=== PATIENT | female | born 1985 | race Caucasian/White ===

== ENCOUNTER 2017-11-26 20:30 | Outpatient (CLI) | payer BC | END 2017-11-26 20:31 | disposition home or self-care (01) | LOC: SLEEPLAB 20:30 | PROVIDERS: ATTEND Family Medicine | DX: G47.33 Obstructive sleep apnea (adult) (pediatric) (principal); R53.83 Other fatigue; K21.9 Gastro-esophageal reflux disease without esophagitis; I10 Essential (primary) hypertension | CPT/HCPCS: 95811 ==

== ENCOUNTER 2019-02-23 08:06 | Outpatient (CLI) | payer BC ==
[2019-02-23 08:32] LABS: Anion Gap 12 mmol/L (10-20); BUN (Urea Nitrogen) 19 mg/dL (8.9-20.6); Calc. Creatinine Clearance 0 mL/min (70-130); Calcium 9.5 mg/dL (7.8-10.44); Carbon Dioxide 28 mmol/L (22-29); Chloride 107 mmol/L (98-107); Estimated GFR-MDRD 59; Glucose 97 mg/dL (70-105); Potassium 3.8 mmol/L (3.5-5.1); Sodium 143 mmol/L (136-145); Uric Acid 7.7 mg/dL (3.5-7.2)
--- NOTE | 2019-02-23 08:44 | ULT ---
ULTRASOUND RETROPERITONEUM COMPLETE: (RENAL) DATE: 02/23/2019. HISTORY: A 33-year-old male with calculus of kidney, nephrolithiasis. FINDINGS: The right kidney measures 10 x 5.5 x 5.5 cm. The left kidney measures 11 x 6 x 5 cm. Both kidneys h ave normal cortical thickness and normal cortical echogenicity. There is no hydronephrosis. Cursory images of the urinary bladder demonstrate no gross abnormality. IMPRESSION: Normal jn [] POS: C
[2019-02-23 08:56] LABS: Bilirubin Negative (Negative); Blood, Urine Negative (Negative); Clarity Clear (Clear); Glucose, Urine (Dipstick) Negative (Negative); Leukocyte Negative (Negative); Nitrite Negative (Negative); Protein, Urine (Dipstick) Negative (Neg-Trace); Urobilinogen 0.2 mg/dL (Less than 2)
--- NOTE | 2019-02-23 08:57 | RAD ---
KUB: HISTORY: Left-sided kidney stone by history. FINDINGS: The bowel gas pattern appears nonobstructive. I see no definitive renal or ureteral calculi. IMPRESSION: Unremarkable KUB. POS: [facility]
[2019-02-23 09:00] LABS: Urine Culture Reflex No No
[2019-02-23 09:25] LABS: RBC/HPF 0-3 HPF (0-3); WBC/HPF 0-3 HPF (0-3)
[2019-02-23 09:27] LABS: Squamous Epithelial 0-3 HPF (0-3)
[2019-02-23 09:32] LABS: Bacteria/HPF None Seen HPF (None Seen)
== END 2019-02-23 08:07 | disposition home or self-care (01) ==
LOC: SCSULT 08:06
PROVIDERS: ATTEND Urology
DX: N20.0 Calculus of kidney (principal); N18.2 Chronic kidney disease, stage 2 (mild); R35.0 Frequency of micturition
CPT/HCPCS: 36415; 74018; 76770; 80048; 81001; 83970; 84550

== ENCOUNTER 2019-12-03 11:07 | Outpatient (CLI) | payer BC ==
--- NOTE | 2019-12-03 11:42 | ULT ---
ULTRASOUND RETROPERITONEUM COMPLETE: (RENAL) DATE: 12/03/2019 HISTORY: 34-year-old male with calculus of kidney nephrolithiasis ICD-10: N 20.0 FINDINGS: The right kidney measures 10.5 x 6 x 6 cm. The left kidney measures 10.5 x 6 x 5.5 cm. Both kidneys have normal parenchymal echogenicity. There is no hydronephrosis. No moderate sized or large renal cystic or solid renal lesion is identified. Prevoid urinary bladder volume 465 mL. Post void urinary bladder volume 35 mL. IMPRESSION: 1) distended urinary bladder followed by incomplete micturition. 2) no sonographic renal abnormality identified.
== END 2019-12-03 11:08 | disposition home or self-care (01) ==
LOC: SCSULT 11:07
PROVIDERS: ATTEND Urology
DX: N20.0 Calculus of kidney (principal); N32.89 Other specified disorders of bladder; R39.14 Feeling of incomplete bladder emptying
CPT/HCPCS: 76770